=== PATIENT | male | born 1960 | race Caucasian/White ===

== ENCOUNTER 2017-03-23 21:26 | Emergency (ER) | payer OTHER ==
[~2017-03-23] VITALS: Ht 175.3 cm; Wt 73.8 kg
[~2017-03-23 21:26] MED LIST: ATORVASTATIN CA80 MG PO; EXTRA STRENGTH500 M1 PO; GABAPENTIN100 MG PO; PLAVIX75 MG PO; RANITIDINE HCL150 MG PO; SERTRALINE HCL50 MG PO; TRAZODONE HCL50 MG PO
[2017-03-23] MEDS ORDERED: PEN-VEE K,VEET500 MG PO (23:10)
[2017-03-23 23:31] VITALS: BP 104/63
== END 2017-03-23 23:32 | disposition home or self-care (01) ==
LOC: EME 21:26
DX: K08.89 Other specified disorders of teeth and supporting structures (principal); F31.9 Bipolar disorder, unspecified; F17.200 Nicotine dependence, unspecified, uncomplicated
CPT/HCPCS: 99281; 99284